=== PATIENT | female | born 1985 | race Two or more races ===

== ENCOUNTER → 2022-08-23 | Emergency (ER) | payer OTHER ==
[~2022-08-23] VITALS: Ht 157.5 cm; Wt 63.5 kg
== END | disposition home or self-care (01) ==
LOC: ER 13:12
DX: M79.661 Pain in right lower leg (principal)

== ENCOUNTER → 2022-09-28 07:39 | Outpatient (CLI) | payer OTHER | END | disposition home or self-care (01) | LOC: LAB 07:39 | PROVIDERS: ATTEND Internal Medicine Hematology & Oncology | DX: D50.0 Iron deficiency anemia secondary to blood loss (chronic) (principal); D63.8 Anemia in other chronic diseases classified elsewhere; D63.0 Anemia in neoplastic disease; D50.8 Other iron deficiency anemias ==

== ENCOUNTER 2022-10-04 08:38 | Outpatient (CLI) | payer OTHER | END 2022-10-04 08:42 | disposition home or self-care (01) | LOC: MRI 08:38 | PROVIDERS: ATTEND Obstetrics & Gynecology | DX: N93.8 Other specified abnormal uterine and vaginal bleeding (principal); N93.0 Postcoital and contact bleeding; N95.0 Postmenopausal bleeding; D26.1 Other benign neoplasm of corpus uteri; D25.1 Intramural leiomyoma of uterus | CPT/HCPCS: 72197 ==

== ENCOUNTER 2022-10-07 07:39 | Outpatient (CLI) | payer OTHER | END 2022-10-07 07:41 | disposition home or self-care (01) | LOC: NUCLEAR 07:39 | PROVIDERS: ATTEND Internal Medicine Hematology & Oncology | DX: I87.2 Venous insufficiency (chronic) (peripheral) (principal) ==

== ENCOUNTER 2022-10-11 07:30 | Outpatient (CLI) | payer OTHER | END 2022-10-11 07:34 | disposition home or self-care (01) | LOC: RAD 07:30 | PROVIDERS: ATTEND Obstetrics & Gynecology | DX: Z01.810 Encounter for preprocedural cardiovascular examination (principal); Z01.811 Encounter for preprocedural respiratory examination; N93.8 Other specified abnormal uterine and vaginal bleeding; N93.0 Postcoital and contact bleeding; N95.0 Postmenopausal bleeding; D26.1 Other benign neoplasm of corpus uteri; D25.1 Intramural leiomyoma of uterus ==

== ENCOUNTER 2022-10-19 07:23 | Outpatient (CLI) | payer OTHER | END 2022-10-19 07:24 | disposition home or self-care (01) | LOC: LAB 07:23 | PROVIDERS: ATTEND Obstetrics & Gynecology | DX: N93.8 Other specified abnormal uterine and vaginal bleeding (principal); N93.0 Postcoital and contact bleeding; N95.0 Postmenopausal bleeding; D26.1 Other benign neoplasm of corpus uteri; D25.1 Intramural leiomyoma of uterus ==

== ENCOUNTER 2022-10-27 05:10 | Day surgery (SDC) | payer OTHER ==
[2022-10-27] MEDS ORDERED: DICLOFENAC POTA50 MG PO (10:20)
== END 2022-10-27 14:00 | disposition home or self-care (01) ==
LOC: CIR.AMB 05:10
PROVIDERS: ATTEND Obstetrics & Gynecology
DX: D25.0 Submucous leiomyoma of uterus (principal); N92.0 Excessive and frequent menstruation with regular cycle; Z20.822 Contact with and (suspected) exposure to COVID-19; Z87.891 Personal history of nicotine dependence

== ENCOUNTER 2023-05-31 10:21 | Outpatient (CLI) | payer OTHER ==
[~2023-05-31 10:21] MED LIST: DICLOFENAC POTA50 MG PO
== END 2023-05-31 10:30 | disposition home or self-care (01) ==
LOC: NUCLEAR 10:21
PROVIDERS: ATTEND Internal Medicine Hematology & Oncology
DX: I82.811 Embolism and thrombosis of superficial veins of right lower extremity (principal)

== ENCOUNTER 2023-07-05 10:52 | Outpatient (CLI) | payer OTHER ==
[2023-07-05 11:32] LABS: HEMATOCRIT 32.7 % (36.0-45.00); HEMOGLOBIN 10.5 g/dL (12.0-15.00); MEAN CELL VOLUME 79.9 fL (80.00-100.00); MEAN CORPUSCULAR HEMOGLOBIN 25.6 pg (27.00-32.0); MEAN CORPUSCULAR HGB CONC 32.1 g/dl (32.0-36.0); PLATELET COUNT 302 K/uL (150-450); RED BLOOD COUNT 4.09 M/uL (4.00-6.00)
[2023-07-05 11:41] LABS: RED CELL DISTRIBUTION WIDTH 19.2 % (11.5-14.5)
[2023-07-05 12:32] LABS: FERRITIN 7.8 NG/ML (8-252)
== END 2023-07-05 10:58 | disposition home or self-care (01) ==
LOC: LAB 10:52
PROVIDERS: ATTEND Internal Medicine Hematology & Oncology
DX: D50.0 Iron deficiency anemia secondary to blood loss (chronic) (principal); D63.8 Anemia in other chronic diseases classified elsewhere; D63.0 Anemia in neoplastic disease; D50.8 Other iron deficiency anemias